=== PATIENT | female | born 1960 | race Caucasian/White ===

== ENCOUNTER → 2018-07-08 | Outpatient (CLI) | payer OTHER | END | disposition home or self-care (01) | LOC: LAB 17:22 → LAB SHORT 17:22 | DX: R30.0 Dysuria (principal) | CPT/HCPCS: 87086 ==

== ENCOUNTER → 2018-08-08 | Outpatient (CLI) | payer OTHER | END | disposition home or self-care (01) | LOC: LAB SHORT 08:12 → PLD 08:12 | DX: D22.72 Melanocytic nevi of left lower limb, including hip (principal) | CPT/HCPCS: 88305 ==

== ENCOUNTER → 2018-10-10 | Outpatient (CLI) | payer OTHER | END | disposition home or self-care (01) | LOC: LAB SHORT 11:38 → LAB 11:38 | DX: R35.0 Frequency of micturition (principal) | CPT/HCPCS: 87086 ==

== ENCOUNTER → 2018-11-21 | Outpatient (CLI) | payer OTHER | END | disposition home or self-care (01) | LOC: LAB SHORT 19:25 → LAB 19:25 | DX: R35.0 Frequency of micturition (principal) | CPT/HCPCS: 87086; 87147 ==

== ENCOUNTER → 2018-12-07 | Outpatient (CLI) | payer OTHER | END | disposition home or self-care (01) | LOC: LAB SHORT 10:27 → LAB 10:27 | DX: R35.0 Frequency of micturition (principal) | CPT/HCPCS: 87086 ==

== ENCOUNTER → 2018-12-07 | Outpatient (CLI) | payer OTHER ==
[2018-12-08 08:12] LABS: HIV SCREEN 4TH GENERATION WRFX Non Reactive (Non Reactive)
== END ==
LOC: LAB 09:17 → LAB SHORT 09:17
PROVIDERS: Nurse Practitioner
DX: Z77.21 Contact with and (suspected) exposure to potentially hazardous body fluids (principal)
CPT/HCPCS: 87389

== ENCOUNTER → 2019-03-09 | Outpatient (CLI) | payer OTHER ==
[2019-03-10 07:06] LABS: HBSAG SCREEN Negative (Negative); HCV ANTIBODY 0.1 (0.0-0.9)
[2019-03-10 08:06] LABS: HIV SCREEN 4TH GENERATION WRFX Non Reactive (Non Reactive)
== END | disposition home or self-care (01) ==
LOC: LAB SHORT 13:46 → LAB 13:46
PROVIDERS: Physician Assistant
DX: Z77.21 Contact with and (suspected) exposure to potentially hazardous body fluids (principal)
CPT/HCPCS: 84460; 86317; 86803; 87340; 87389

== ENCOUNTER → 2019-05-09 | Outpatient (CLI) | payer OTHER | END | disposition home or self-care (01) | LOC: LAB SHORT 17:57 → LAB 17:57 | DX: R35.0 Frequency of micturition (principal) | CPT/HCPCS: 87077; 87086; 87186 ==

== ENCOUNTER → 2020-12-28 | Outpatient (CLI) | payer OTHER | LOC: LAB SHORT 19:00 → LAB 19:00 | DX: N39.0 Urinary tract infection, site not specified (principal) | CPT/HCPCS: 87086 ==

== ENCOUNTER → 2022-09-30 | Outpatient (CLI) | payer OTHER | END | disposition home or self-care (01) | LOC: LAB 13:42 → LAB SHORT 13:42 | DX: R30.0 Dysuria (principal) | CPT/HCPCS: 87086 ==

== ENCOUNTER → 2023-05-27 | Outpatient (CLI) | payer OTHER | END | disposition home or self-care (01) | LOC: LAB 18:32 → LAB SHORT 18:32 | DX: R30.0 Dysuria (principal) | CPT/HCPCS: 87077; 87086; 87186 ==

== ENCOUNTER → 2023-07-23 | Outpatient (CLI) | payer OTHER | LOC: LAB 10:24 → LAB SHORT 10:24 | DX: R30.0 Dysuria (principal); R35.0 Frequency of micturition | CPT/HCPCS: 87077; 87086; 87186 ==

== ENCOUNTER 2024-09-17 06:56 | Day surgery (SDC) | payer OTHER ==
[~2024-09-17] VITALS: Ht 167.6 cm; Wt 77.5 kg
[2024-09-17] VITALS (12 sets, daily range): BP systolic 109–125; BP diastolic 44–84
[~2024-09-17 06:56] MED LIST: ALBU90OI INH; AMLO5 PO; ATEN25 PO; BUSP5 PO; LOSARTAN-HCTZ1 EACH PO; TRAZ50 PO
[2024-09-17] MEDS ORDERED: Lactated Ringer's 1,000 ML IV SCH ×2 (07:40→08:05)
[2024-09-17] MEDS ORDERED: Ropivacaine 0.5% HCl/Pf 123.125 MG,EPINEPHrine HCL 0.25 MG,Ketorolac Tromethamine 15 MG... INFIL SCH (07:40)
[2024-09-17] MEDS ORDERED: Chlorhexidine Mouth Care 15 ML UDC MT SCH (07:40)
[2024-09-17] MEDS ORDERED: OxyCODONE HCL 10 MG TABCR PO SCH (07:40)
[2024-09-17] MEDS ORDERED: Tranexamic Acid 1,000 MG in NS 100 ML IV SCH (07:40)
[2024-09-17] MEDS ORDERED: Acetaminophen 500 MG Tab PO SCH ×2 (07:40→08:00)
[2024-09-17] MEDS ORDERED: DiphenhydrAMINE HCL 25 MG Cap PO PRN (08:00)
[2024-09-17] MEDS ORDERED: HYDROmorphone HCl/Pf 1MG SYR IV PRN (08:00)
[2024-09-17] MEDS ORDERED: FLU VACC TS2024-25(6MOS UP)/PF 45 MCG/0.5 ML SYRINGE IM SCH (08:00)
[2024-09-17] MEDS ORDERED: Bisacodyl 10 MG Supp PR PRN (08:00)
[2024-09-17] MEDS ORDERED: OxyCODONE HCL 5 MG TAB PO PRN ×2 (08:05)
[2024-09-17] MEDS ORDERED: Ondansetron HCl 2 MG / ML 2ML Vial IV PRN (08:05)
[2024-09-17] MEDS ORDERED: Magnesium Hydroxide Conc 10 ML UDC PO PRN (08:05)
[2024-09-17] MEDS ORDERED: Metoclopramide HCl 5MG / ML 2ML Vial IV PRN (08:05)
[2024-09-17] MEDS ORDERED: Promethazine HCl 25 MG Tab PO PRN (08:05)
[2024-09-17] MEDS ORDERED: Albuterol HFA200 ACT/6.7 GM INH INH PRN (08:15)
[2024-09-17] MEDS ORDERED: CeFAZolin Sodium 2,000 MG in NS 100 ML IV SCH ×2 (08:30→17:00)
[2024-09-17] MEDS ORDERED: CeFAZolin Sodium 2,000 MG VIAL ONE (08:41)
[2024-09-17] MEDS ORDERED: propofoL 100 ML IV ONE (08:45)
[2024-09-17] MEDS ORDERED: ePHEDrine Sulfate 50 MG/ML 1ML Injection ONE (09:23)
[2024-09-17] MEDS ORDERED: propofoL 20 ML IV ONE (10:23)
--- NOTE | 2024-09-17 11:35 | NUR ---
PT ARRIVED TO RM 219 FROM PACU AT APPROXIMATELY 1110. PT ALERT, ORIENTED AND PLEASANT. PT EDUCATED TO USE THE CALL LIGHT. AT THE BEDSIDE. PT DENIES PAIN. SHE IS ABLE TO MOVE BLE. SPINAL SITE WNL.
[2024-09-17] MEDS ORDERED: Ketorolac Tromethamine 15mg Vial IV SCH (12:00)
[2024-09-17] MEDS ORDERED: ASPI81CH PO (14:25)
--- NOTE | 2024-09-17 16:20 | NUR ---
DISCHARGE PT AND HER SPOUSE WERE PROVIDED WITH WRITTEN AND VERBAL DISCHARGE INSTRUCTIONS, THEY REPORTED UNDERSTANDING. PAIN MANAGED AT TIME OF DISCHARGE. PT ABLE TO TOLERATE PO, VOID AND PAIN MANAGED PRIOR TO DISCHARGE. CLEAN DRESSINGS PROVIDED. PT ASSISTED OUT IN W/C AT APPROXIMATELY 1546.
[2024-09-17] MEDS ORDERED: Docusate Sodium 100 MG Cap PO SCH (21:00)
[2024-09-17] MEDS ORDERED: Atenolol 25 MG Tab PO SCH (21:00)
[2024-09-17] MEDS ORDERED: TraZODone HCl 50 MG Tab PO SCH (21:00)
[2024-09-17] MEDS ORDERED: BusPIRone HCl 5 MG Tab PO SCH (21:00)
[2024-09-18] MEDS ORDERED: Losartan/HCTZ 50-12.5 TAB PO SCH (09:00)
[2024-09-18] MEDS ORDERED: Aspirin 81 MG Chew PO SCH (09:00)
[2024-09-18] MEDS ORDERED: AmLODIPine Besylate 5 MG Tab PO SCH (09:00)
== END 2024-09-17 15:50 | disposition home or self-care (01) ==
LOC: ORSCMMR 06:56 → ORD 08:15 → ORSCMMR 08:15 → SURS 11:04 → ORSCMMR 15:50
PROVIDERS: Orthopaedic Surgery
PROC: 0SRD0JA Replacement of Left Knee Joint with Synthetic Substitute, Uncemented, Open Approach (ICD-10-PCS; principal; 2024-09-17 08:15)
PROC: 8E0Y0CZ Robotic Assisted Procedure of Lower Extremity, Open Approach (ICD-10-PCS; principal; 2024-09-17 08:15)
DX: M17.12 Unilateral primary osteoarthritis, left knee (principal); E11.9 Type 2 diabetes mellitus without complications; G47.33 Obstructive sleep apnea (adult) (pediatric); E05.90 Thyrotoxicosis, unspecified without thyrotoxic crisis or storm; Z79.899 Other long term (current) drug therapy
CPT/HCPCS: 73560-LT; 97110; 97116; 97162; A9270; C1713; C1776; J0171; J0690; J0735; J1171; J1885; J2704; J2795; J7120